=== PATIENT | female | born 1955 | race Caucasian/White ===

== ENCOUNTER 2018-09-06 16:39 | Inpatient (IN) | payer BC, OTHER ==
[~2018-09-06] VITALS: Ht 172.7 cm; Wt 68.0 kg
--- NOTE | 2018-09-06 20:15 | NUR ---
INTAKE ASSESSMENT BP:133/94, HR:117, RR:16, SpO2: 95% , T:98 Pt is in stable condition and able to be admitted on the unit. Unit protocols regarding medications and vital signs Q4H were explained. Pt verbalized understanding. Will continue admission upon arrival on the unit.
--- NOTE | 2018-09-06 20:30 | NUR ---
CIWA 15 Pt presents with anxiety, tremors, flushed skin, agitation, flat affect, restlessness, difficulty concentrating, poor eye contact, nausea, and is fidgety. PRN medication are not available at this time. Charge Nurse contacting the MD.
[2018-09-06] MEDS ORDERED: OXYB5TAB11 PO (20:47)
[2018-09-06] MEDS ORDERED: BUPR150T10 PO (20:47)
[2018-09-06] MEDS ORDERED: ESTR1PAT7 TD (20:47)
--- NOTE | 2018-09-06 21:30 | NUR ---
Admission Note Pt arrived on the unit at 2023 on 09/06/18 for medically supervised withdrawal for ETOH. Skin and body check completed, skin intact and no contraband found. Pt provided UDS. Pt is 5'8 and weighs 150 lbs. Pt presents with anxiety, flushed skin, agitation, flat affect, restlessness, difficulty concentrating, poor eye contact, and is fidgety. Pt admits to drinking 750 mls of whiskey at 1700 before boarding her plane to [place]. Pupils are PEERLA. Respirations even and unlabored, lung sounds clear. Last BM was yesterday 09/05/18. Vital signs: BP 133/94, HR 117, T 98.8, RR 20, O2 95% on room air and Pain 4/10 to the upper right quadrant. Substance Use History: Whiskey 750 mls daily, last intake 750mls today at 1700, at this rate for 3-4 months (Pt is not sure of the exact date). Pt has been abusing ETOH on and off for 40 years. Pt reports she typically gets the following S/S of withdrawal: anxiety, tremors, nausea, vomiting, body aches, sweats, and insomnia. Pt is a full code, regular diet, allergies to codeine, and is on fall/seizure precautions. No known seizure HX. Pt reports a PMH of depression, pancreatitis, hepatitis C, and lung CA diagnosed 1 year ago. Pt had the left upper lobe of her lung removed d/t her CA. Pt is a former smoker and has not smoked cigarettes for over 7 years. Pt currently takes Bupropion HCl 150 mg daily for depression and smoking cessation. Pt also is taking Estradiol 0.05 for hormone therapy for post menopause and Oxybutynin 5 mg for bladder spasms. Pt is not a candidate for MRSA, denies any hospitalization or in correction in the past 30 days. Pt reports a PCP, Dr. Davis. Pt reports grandfather being an alcoholic. Pt reports her longest period of sobriety was 9 months about 5 years ago. Pt reported last sobriety was 2 years ago and was sober for 6 month. Pt reports that she relapsed due to having a "boring life". Pt stated that she has nothing to do at home to pass the time so she drinks. Pt has also had the recent passing of a friend and an aunt this year. Pt states that her motivation for getting sober is her health and her family. Pt has an adult daughter that does not want her in her life until the Pt gets and stays sober. 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 Pt would used and shared needles for heroin. Pt contracted hepatitis C by sharing needles. Pt states this admission will be different d/t health issues and family and friends being supportive through this process. Pt reports being in 5 treatment center though the years with the most recent treatment center being [facility] in [place], [place] for 45 days in December of 2015. Pt was sober for 6 months and relapsed in June 2016. Pt does not remember the names or locations of the other 4 treatment centers at this time. Pt has 2 adult children with 4 grandchildren. 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 Oriented Pt to room and unit, educated Pt about rules and expectations of unit and how to use call light. Pt verbalized understanding. Addendum: 09/07/18 at 1436 by RONEN CARRASCO RN Update on Substance Use History: Patient's UDS resulted positive for benzodiazepines. Per patient, she had a prescription for Valium. She states that for "a few months" she took Valium 5 mg 1-2x/week for insomnia. Last use 09/03/18.
[2018-09-06] MEDS ORDERED: LOPERAMIDE HCL 2 MG CAPSULE PO PRN ×2 (22:00)
[2018-09-06] MEDS ORDERED: MAG HYDROX/AL HYDROX/SIMETH 30 ML LIQUID UDC PO PRN (22:00)
[2018-09-06] MEDS ORDERED: MAGNESIUM HYDROXIDE 30 ML LIQUID UDC PO PRN (22:00)
[2018-09-06] MEDS ORDERED: IBUPROFEN 400 MG TABLET PO PRN (22:00)
[2018-09-06] MEDS ORDERED: ONDANSETRON 4 MG/2 ML VIAL IM PRN (22:00)
[2018-09-06] MEDS ORDERED: LORAZEPAM 2 MG/1 ML VIAL IM PRN (22:00)
[2018-09-06] MEDS ORDERED: DIAZEPAM 5 MG TABLET PO PRN (22:00)
[2018-09-06] MEDS ORDERED: THIAMINE HCL 200 MG/2 ML VIAL IM ONE (22:00)
[2018-09-06] MEDS ORDERED: FOLIC ACID 1 MG TABLET PO ONE (22:15)
[2018-09-06] MEDS ORDERED: MULTIVITAMINS,THERAPEUTIC TABLET PO ONE (22:15)
[2018-09-06] MEDS: diphenhydrAMINE 50 MG CAPSULE PO PRN (22:18)
[2018-09-06] MEDS: DIAZEPAM 10 MG TABLET PO PRN (22:18)
--- NOTE | 2018-09-06 22:18 | NUR ---
PRN VALIUM 10 MG AND BENADRYL 50 MG ADMINISTRATION Pt presents with anxiety, tremors, flushed skin, agitation, flat affect, restlessness, difficulty concentrating, poor eye contact, nausea, and is fidgety. CIWA 15
[2018-09-06] MEDS ORDERED: THIAMINE HCL 100 MG TABLET PO ONE (22:30)
[2018-09-06 22:36] LABS: BASOPHILS % (AUTO) 0.4 % (0.0-2.0); EOSINOPHILS % (AUTO) 0.3 % (0.0-7.0); HEMOGLOBIN 15.6 g/dL (10.9-14.3); LYMPHOCYTES # (AUTO) 1.9 K/uL (20.0-40.0); MEAN CORPUSCULAR HEMOGLOBIN 32.7 uug (24.7-32.8); MEAN CORPUSCULAR HGB CONC 35 g/dL (32.3-35.6); MONOCYTES # (AUTO) 0.6 K/uL (2.0-10.0); MONOCYTES % (AUTO) 6.4 % (0.0-11.0); NEUTROPHILS # (AUTO) 6.4 K/uL (1.8-8.9); NEUTROPHILS % (AUTO) 71.9 % (38.5-71.5); PLATELET COUNT (AUTO) 267 K/uL (179-408); RED BLOOD CELL COUNT(AUTO) 4.78 MIL/uL (3.63-4.92); WHITE BLOOD COUNT (AUTO) 8.9 K/uL (3.8-11.8)
[2018-09-06 22:46] LABS: BILIRUBIN,TOTAL 1.4 mg/dL (0.2-1.0); CREATININE 0.8 mg/dL (0.6-1.3); MAGNESIUM 1.5 mg/dL (1.8-2.4); POTASSIUM 3.2 mmol/L (3.5-5.1); TOTAL PROTEIN, SERUM 9.4 g/dL (6.4-8.2)
[2018-09-06 22:56] LABS: THYROID STIMULATING HORMONE 5.077 mIU/mL (0.358-3.740)
[2018-09-06] MEDS ORDERED: KETOROLAC TROMETHAMINE 30 MG INJ IM ONE (23:15)
--- NOTE | 2018-09-06 23:18 | NUR ---
PRN VALIUM 10 MG AND BENADRYL 50 MG REASSESSMENT Pt continues to complain of anxiety, tremors, flushed skin, agitation, nausea, chills, and sweats. PRN medication noted not effective. Charge nurse aware.
[2018-09-06] MEDS: ONDANSETRON ODT 4 MG TAB.RAPDIS SL PRN (23:30)
--- NOTE | 2018-09-06 23:31 | NUR ---
PRN TORADOL 30MG IM AND ZOFRAN ODT 4MG ADMINISTRATION Pt complains of 8/10 pain to the URQ of her abdomen and nausea. PRN medication were administered per order. Safety measures in place. Call light within reach. Will continue to monitor.
[2018-09-06 23:39] LABS: *AMPHETAMINE, URINE NEGATIVE (NEGATIVE); *BARBITURATE, URINE NEGATIVE (NEGATIVE); *CANNABINOID, URINE NEGATIVE (NEGATIVE); *COCCAINE, URINE NEGATIVE (NEGATIVE); *OPIATE, URINE NEGATIVE (NEGATIVE); *PHENCYCLIDINE SCREEN,URINE NEGATIVE (NEGATIVE)
[2018-09-06] MEDS ORDERED: MAGNESIUM OXIDE 400 MG TABLET PO ONE (23:45)
[2018-09-06] MEDS ORDERED: POTASSIUM CHLORIDE 20 MEQ TAB.PRT.SR PO ONE (23:45)
[2018-09-07] VITALS: BP 136/106
--- NOTE | 2018-09-07 | NUR ---
CIWA 14 Pt complains of headache, anxiety, agitation, restlessness, nausea, tremors, and sweats. CIWA 14
--- NOTE | 2018-09-07 00:31 | NUR ---
PRN TORADOL 30MG IM AND ZOFRAN ODT 4MG REASSESSMENT Pt states a decrease in pain 6/10 and no more nausea. PRN mediations noted effective. Safety measures in place. Call light within reach. Will continue to monitor.
[2018-09-07] MEDS: DIAZEPAM 10 MG TABLET PO PRN ×3 (03:00→16:38)
--- NOTE | 2018-09-07 03:00 | NUR ---
PRN VALIUM 20MG ADMINISTRATION Pt complains of increased anxiety, agitation, tremors, flushed and clammy skin, body aches, headache, and restlessness. CIWA of 16 on assessment. PRN Valium 20mg was administered per order. Call light within reach. Safety measures in place. Will continue to monitor.
--- NOTE | 2018-09-07 04:00 | NUR ---
CIWA DEFERRED V/S REFUSED Pt was found in bed with eyes closed. Pt refused V/S and COWS assessment was unable to be carried out per order. Safety measures in place. Call light within reach. Will continue to monitor. Addendum: 09/07/18 at 0601 by ELLEN MEIER RN CIWA assessment was unable to be carried out per order.
--- NOTE | 2018-09-07 04:00 | NUR ---
PRN VALIUM 20MG REASSESSMENT Pt found in bed with eyes closed. Pt's respirations are even and unlabored. Medication noted as effective. Call light within reach. Safety measures in place. Will continue to monitor.
--- NOTE | 2018-09-07 06:49 | NUR ---
PRN IMODIUM Pt complains of episode of diarrhea. PRN Imodium administered as ordered. Will endorse to AM shift to monitor effectiveness.
--- NOTE | 2018-09-07 07:33 | NUR ---
END OF SHIFT Pt is a 63 y/o female admitted on 09/06/18 for ETOH withdrawal. Pt has not been has not been given a taper by the MD yet. Pt presented with anxiety, flushed skin, agitation, flat affect, restlessness, difficulty concentrating, poor eye contact, and is fidgety. PRN Benadryl, Toradol IM, Zofran ODT, Valium 10mg and Valium 20mg were administered, effective in S/S of withdrawal AEB Pt sleeping 3 hours. Last CIWA 16. Pt slept 3 hours. Intake 796 ml, void x 1, stool x 0. Safety measures in place. Call light within reach. Pt's needs have been met. Endorsed to day shift nurse.
--- NOTE | 2018-09-07 07:35 | NUR ---
START OF SHIFT Endorse rcvd from ongoing nurse, client is in room, she is in a position, sounds asleep, easy to arouse. RR 16, even, non-labored. Last CIWA 16 @ 0400. PRN Valium 20mg PO, & Valium 10mg PO, Zofran 4mg SL for nausea, Imodium 4mg PO for diarrhea. Client slept 3 hrs. Side rails x 2 up. Seizure precautions. Call light within reach. Will continue to monitor.
[2018-09-07] MEDS: ONDANSETRON ODT 4 MG TAB.RAPDIS SL PRN ×2 (08:04→16:38)
--- NOTE | 2018-09-07 08:04 | NUR ---
PRN Zofran 4mg SL for intermittent nausea, no episodes of emesis. Saltine crackers and edmundo sydnee offered to client, she decline at this time. Call light within reach.
[2018-09-07] MEDS: FOLIC ACID 1 MG TABLET PO SCH (08:05)
[2018-09-07] MEDS: MULTIVITAMINS,THERAPEUTIC TABLET PO SCH (08:05)
[2018-09-07] MEDS: THIAMINE HCL 100 MG TABLET PO SCH (08:05)
--- NOTE | 2018-09-07 08:05 | NUR ---
CIWA 24 & PRN Valium 20mg PO administered. Client is pacing the room, she presents with anxiety, irritability, tremors, avoidant gaze, flushed facial skin, restless, and difficulty concentrating. Client reports feeling very anxious, sweats, tremors, poor appetite, nausea, diarrhea, pins and needle feeling on lower extremities, abdominal pain 7/10, headache, and fatigue. Call light within reach.
[2018-09-07 08:15] VITALS: BP 157/108
--- NOTE | 2018-09-07 08:34 | NUR ---
Reassess PRN Zofran 4mg SL, client reports relief from nausea.
[2018-09-07] MEDS: OXYBUTYNIN CHLORIDE 5 MG TABLET PO SCH ×2 (08:59→16:39)
[2018-09-07] MEDS ORDERED: 4 DAY TAPER VALIUM-SERENITY PROTOCOL PO PRN (09:00)
[2018-09-07] MEDS ORDERED: PNEUMOCOCCAL 23-VAL P-SAC VAC 0.5 ML VIAL IM ONE (09:00)
[2018-09-07] MEDS ORDERED: INFLUENZA VACCINE 2018-2019 0.5 ML DISP.SYRIN IM ONE (09:00)
[2018-09-07] MEDS ORDERED: TUBERCULIN,PURIF.PROT.DERIV. 5 TU/0.1 ML TEST ID ONE (09:00)
--- NOTE | 2018-09-07 09:05 | NUR ---
Reassess PRN Valium 20mg, client reports the only difference is she does not have nausea at the moment, otherwise, she feels pretty much the same withdrawal symptoms, anxiety, irritability, tremors, flushed facial skin, restless, diarrhea, pins and needle feeling on lower extremities, abdominal pain 4/10, headache, and fatigue. Call light within reach.
[2018-09-07] MEDS: DIAZEPAM 10 MG TABLET PO SCH ×3 (09:15→20:06)
[2018-09-07 12:55] VITALS: BP 148/105
--- NOTE | 2018-09-07 12:55 | NUR ---
WA 17 Client presents with anxiety, irritability, agitation, flushed facial skin, and tremors. Client reports abdominal cramps, poor appetite, cold/chills, clammy skin, depression, headache, difficulty concentrating, fatigue, restless legs, sweating, and abdominal pain 06/23, client refuses Motrin 400mg PO at this time. Non-pharmacologic measures rendered. Encourage client to increase PO fluid intake to facilitate detox. Call light within reach.
--- NOTE | 2018-09-07 13:18 | NUR ---
Therapist prompted client to attend group therapy.
[2018-09-07 16:03] LABS: MAGNESIUM 1.9 mg/dL (1.8-2.4); POTASSIUM 4.7 mmol/L (3.5-5.1)
[2018-09-07 16:35] VITALS: BP 158/106
[2018-09-07] MEDS: KETOROLAC TROMETHAMINE 30 MG INJ IM PRN ×2 (16:38→23:04)
--- NOTE | 2018-09-07 16:38 | NUR ---
PRN Valium 10mg PO for CIWA 15, Zofran 4mg SL for nausea, Clonidine 0.1mg PO for BP 158/106, Toradol 30mg IM for abdominal pain 07/24. Client continues to reports agitation, clammy skin, body aches, sweats, difficulty thinking clearly, emotional volatility, nausea, depression, difficulty concentrating, tremors, flushed facial skin, disorientation, and poor appetite. Call light within reach.
[2018-09-07] MEDS: CLONIDINE HCL 0.1 MG TABLET PO PRN (16:39)
[2018-09-07 16:51] LABS: BILIRUBIN,TOTAL 1.5 mg/dL (0.2-1.0)
[2018-09-07 16:52] LABS: TOTAL PROTEIN, SERUM 7.5 g/dL (6.4-8.2)
--- NOTE | 2018-09-07 17:08 | NUR ---
KASSANDRA Vargas 4mg, client reports slight relief from nausea. Addendum: 09/07/18 at 1729 by JC DICK RN Reassess
--- NOTE | 2018-09-07 17:09 | NUR ---
Reassess PRN Toradol 30mg, client reports slight relief from abdominal pain 3/10, but tolerable.
--- NOTE | 2018-09-07 17:38 | NUR ---
Reassess PRN Clonidine 0.1mg PO BP 110/74, Client sound asleep, easy to arouse, RR 16. unable to reassess CIWA. Call light within reach.
--- NOTE | 2018-09-07 19:06 | NUR ---
END OF SHIFT Endorse client to incoming nurse, client is in room, a/o x 4, client continues to present with agitation, anxiety, clammy skin, sweats, cold, chills, fatigue, difficulty thinking clearly, emotional volatility, nausea, depression, difficulty concentrating, tremors, flushed facial skin, disorientation, and poor appetite. Last CIWA 15 @ 1630. Client is placed on 4 day Valium taper. PRN Valium 20mg PO for CIWA 24, Valium 10mg PO for CIWA 15, Zofran 4mg SL (x 2) for nausea, Clonidine 0.1mg PO for BP 110/74 , Toradol 30mg IM for abdominal pain. Client is not compliant with group therapy d/t above withdrawal symptoms. Consumes 25-50% of meals. Adequate PO fluid intake 1000, void x 4, stool x 3. Call light within reach.
--- NOTE | 2018-09-07 19:12 | NUR ---
Start of shift note Received report from day shift nurse. Pt is a 63 yo female, A+Ox4, presenting to [facility] for medically supervised ETOH withdrawal. Pt noted with stomach cramping, restlessness, anxiety, and agitation. Pt has HX of Hep C and pancreatitis which will be monitored during shift. Pt is on 4 day Valium taper, tolerated well. Respirations even and unlabored. Will continue to monitor.
[2018-09-07 20:11] VITALS: BP 114/87
--- NOTE | 2018-09-07 20:11 | NUR ---
CIWA Assessment CIWA: 10. Pt noted with fine tremors, sweat on brow, anxiety, and agitation. Respirations even and unlabored. Will continue to monitor.
--- NOTE | 2018-09-07 23:04 | NUR ---
PRN Toradol Pt c/o abdominal pain 06/23 and requested for PRN Toradol. Medication given and tolerated well. Will reassess within 1 HR. Will continue to monitor.
--- NOTE | 2018-09-08 00:04 | NUR ---
PRN Toradol Reassessment Medication effective. Pt expresses reduction of abdominal pain to 4/10. No s/s of ASE noted at this time. Respirations even and unlabored. Will continue to monitor.
--- NOTE | 2018-09-08 00:32 | NUR ---
V/S refused and CIWA Assessment deferred for sleep. Respirations even and unlabored. Will continue to monitor.
--- NOTE | 2018-09-08 04:47 | NUR ---
V/S refused and CIWA Assessment deferred for sleep. Respirations even and unlabored. Will continue to monitor.
--- NOTE | 2018-09-08 07:00 | NUR ---
End of shift note Pt was continuously noted with anxiety, abdominal pain, agitation, and fatigue. Pt remained in room for entire shift. Pt remained cooperative and compliant with all aspects of treatment. Pt was given PRN Toradol @2304. Pt remains on 4 day Valium taper, tolerated well. Pt slept for a total of 10 HRS. Last CIWA: 10 @2010. Respirations even and unlabored. Will endorse to day shift nurse.
[2018-09-08 07:06] LABS: HEPATITIS B SURFACE AG Negative (Negative)
[2018-09-08] MEDS: KETOROLAC TROMETHAMINE 30 MG INJ IM PRN ×3 (07:30→21:22)
--- NOTE | 2018-09-08 07:30 | NUR ---
START OF SHIFT & PRN Toradol 30mg IM administered Endorse rcvd from ongoing nurse, client is a/o x 4, she is in bed, lying on her back, covered with several blankets, she presents with anxious mood, flushed facial skin, facial grimace, irritability, gross tremors, clammy skin, startles easily, and difficulty concentrating. Client reports abdominal pain 8/10, anxiety, irritability, nausea, sweats, pins and needle feeling on BLE, headache, and fatigue. Last CIWA 10 @ 2200. PRN Toradol 30mg IM. Client slept 10 hrs. Seizure precautions. Side rails x 2 up/padded. Call light withion reach. Will continue to monitor.
--- NOTE | 2018-09-08 08:00 | NUR ---
Reassess PRN Toradol 30mg, client reports abdominal pain 6/10. Call light within reach.
[2018-09-08 08:46] VITALS: BP 135/96
[2018-09-08] MEDS: FOLIC ACID 1 MG TABLET PO SCH (08:48)
[2018-09-08] MEDS: THIAMINE HCL 100 MG TABLET PO SCH (08:48)
[2018-09-08] MEDS: MULTIVITAMINS,THERAPEUTIC TABLET PO SCH (08:48)
[2018-09-08] MEDS: DIAZEPAM 5 MG TABLET PO SCH ×4 (08:48→21:21)
--- NOTE | 2018-09-08 08:48 | NUR ---
[facility] 17 Client presents with abdominal pain, muscle aches, restlessness, nausea, clammy skin, sweats, flushed facial skin, gross tremors, anxiety, irritability, emotional volatility, depressed, anhedonia, and fatigue. Schedule Valium 5mg PO administered. Call light within reach.
[2018-09-08] MEDS: OXYBUTYNIN CHLORIDE 5 MG TABLET PO SCH ×2 (08:49→16:41)
[2018-09-08] MEDS: ESTRADIOL TOP SCH (08:49)
--- NOTE | 2018-09-08 09:46 | NUR ---
Therapist prompted client to attend group therapy.
[2018-09-08 12:48] VITALS: BP 113/60
--- NOTE | 2018-09-08 13:13 | NUR ---
WA 17 Client reports restlessness, abdominal cramping, agitation, anxiety, irritability, nausea, poor appetite, chills/colds, clammy skin, difficulty concentrating, fatigue, gross tremor, flushed facial skin, restless legs, and fatigue. Schedule Valium 5mg PO administered. Call light within reach.
--- NOTE | 2018-09-08 13:50 | NUR ---
PRN Toradol 30mg IM administered to L deltoid for abdominal pain 06/23. Call light within reach.
--- NOTE | 2018-09-08 14:20 | NUR ---
Reassess PRN Toradol 30mg, client reports a slight relief from abdominal pain 4/10, but tolerable. Call light within reach.
--- NOTE | 2018-09-08 16:41 | NUR ---
CIWA 17 Client presents with flushed facial skin, gross tremors, anxiety, irritability, and emotional volatility. Client reports feeling depressed, abdominal pain, muscle aches, restlessness, nausea, clammy skin, sweats, and fatigue. Schedule Valium 5mg PO administered. Call light within reach.
[2018-09-08 16:50] VITALS: BP 133/95
--- NOTE | 2018-09-08 19:16 | NUR ---
END OF SHIFT Endorse client to incoming nurse, client is in room, a/o x 4, client continues to present with flushed facial skin, gross tremors, anxiety, irritability, and emotional volatility, headache, depression, abdominal pain, muscle aches, restlessness, nausea, clammy skin, sweats, and fatigue. Last CIWA 17 @ 1650. Client is on second of 4 day Valium taper. PRN Toradol 30mg IM (x 2) for abdominal pain. Additional education required on cardiac diet. Client is not compliant with group therapy d/t above withdrawal symptoms. Consumes 50% of meals. Adequate PO fluid intake 1700, void x 3, stool x 1. Call light within reach.
--- NOTE | 2018-09-08 19:17 | NUR ---
Start of shift note Received report from day shift nurse. Pt is a 63 yo female, A+Ox4, presenting to [facility] for medically supervised ETOH withdrawal. Pt noted with abdominal pain, restlessness, anxiety, and agitation. Pt has HX of Hepatitis C and pancreatitis which will be monitored during shift. Pt is on 4 day Valium taper, tolerated well. Respirations even and unlabored. Will continue to monitor.
[2018-09-08 20:11] VITALS: BP 132/89
--- NOTE | 2018-09-08 20:11 | NUR ---
CIWA Assessment CIWA: 11. Pt noted with mild nausea, fine tremors, sweat on brow, anxiety, and agitation, Respirations even and unlabored. Will continue to monitor.
--- NOTE | 2018-09-08 21:22 | NUR ---
PRN Toradol Pt c/o abdominal pain 06/23 and requested for PRN Toradol. Medication given and tolerated well. Will reassess within 1 HR. Will continue to monitor.
--- NOTE | 2018-09-09 00:56 | NUR ---
V/S refused and CIWA Assessment deferred for sleep. Respirations even and unlabored. Will continue to monitor.
--- NOTE | 2018-09-09 04:42 | NUR ---
V/S refused and CIWA assessment deferred for sleep. Respirations even and unlabored. Will continue to monitor.
--- NOTE | 2018-09-09 07:00 | NUR ---
End of shift note Pt was continuously noted with abdominal pain, anxiety, restlessness, and agitation. Pt remained in room for entire shift. Pt remained compliant and cooperative with all aspects of treatment. Pt was given PRN Toradol @2121. Pt remains on 4 day Valium taper, tolerated well. Pt slept for a total of 9 HRS. Last CIWA: 11 @2010. Respirations even and unlabored. Will endorse to day shift nurse.
--- NOTE | 2018-09-09 07:15 | NUR ---
Start of Shift Pt. is a 63 y/o female admitted for the medically managed withdrawal from ETOH. Pt. was placed on a 4 day valium taper to help manage withdrawal symptoms. Endorse from previous shift pt. presented with anxiety, abdominal pain, anxiety, restlessness, and agitation. Received pt. in room. Pt. laying in bed with eyes open watching television. Pt. appears unkempt but is pleasant up approach. Educated pt. on treatment plan and medication regiment for the day. Pt. verbalize understanding. Safety measures in place. Will continue to monitor pt.s behavior for safety.
[2018-09-09 07:43] LABS: BASOPHILS % (AUTO) 0.5 % (0.0-2.0); EOSINOPHILS # (AUTO) 0.2 K/uL (0.0-0.7); EOSINOPHILS % (AUTO) 2.8 % (0.0-7.0); HEMATOCRIT 39.1 % (31.2-41.9); HEMOGLOBIN 13.9 g/dL (10.9-14.3); LYMPHOCYTES % (AUTO) 15.5 % (20.5-51.5); MEAN CORPUSCULAR HEMOGLOBIN 33.9 uug (24.7-32.8); MEAN CORPUSCULAR HGB CONC 36 g/dL (32.3-35.6); MEAN CORPUSCULAR VOLUME 95.5 fL (75.5-95.3); MONOCYTES # (AUTO) 0.4 K/uL (2.0-10.0); MONOCYTES % (AUTO) 6.1 % (0.0-11.0); NEUTROPHILS # (AUTO) 4.9 K/uL (1.8-8.9); NEUTROPHILS % (AUTO) 75.1 % (38.5-71.5); PLATELET COUNT (AUTO) 179 K/uL (179-408); WHITE BLOOD COUNT (AUTO) 6.5 K/uL (3.8-11.8)
[2018-09-09 07:54] LABS: BILIRUBIN,TOTAL 0.8 mg/dL (0.2-1.0); CREATININE 0.8 mg/dL (0.6-1.3); POTASSIUM 4.7 mmol/L (3.5-5.1); TOTAL PROTEIN, SERUM 7.5 g/dL (6.4-8.2)
[2018-09-09 08:00] VITALS: BP 128/90
--- NOTE | 2018-09-09 08:00 | NUR ---
CIWA Assessment CIWA of 12. Pt. in room presenting with anxiety, restlessness, tremors and abdominal pain. Will give medication as ordered. Will continue to monitor pt. for safety.
[2018-09-09] MEDS: OXYBUTYNIN CHLORIDE 5 MG TABLET PO SCH ×2 (08:23→16:39)
[2018-09-09] MEDS: MULTIVITAMINS,THERAPEUTIC TABLET PO SCH (08:23)
[2018-09-09] MEDS: THIAMINE HCL 100 MG TABLET PO SCH (08:23)
[2018-09-09] MEDS: FOLIC ACID 1 MG TABLET PO SCH (08:23)
[2018-09-09] MEDS: DIAZEPAM 5 MG TABLET PO SCH ×3 (08:23→21:45)
[2018-09-09] MEDS: KETOROLAC TROMETHAMINE 30 MG INJ IM PRN ×3 (08:24→21:46)
--- NOTE | 2018-09-09 08:24 | NUR ---
PRN Medication Pt. in room complaining of abdominal pain. PRN Toradol given at this time to help manage discomfort. Will continue to monitor pt.'s behavior for medication effectiveness and safety.
--- NOTE | 2018-09-09 09:30 | NUR ---
PRN Re-Assessment Pt. reports a decreased in pain and is currently rating it at a 2/10. Medication effective. Will continue to monitor pt.'s behavior for safety.
[2018-09-09 12:00] VITALS: BP 134/90
--- NOTE | 2018-09-09 12:00 | NUR ---
CIWA Assessment CIWA of 10. Pt. in room presenting with anxiety, restlessness, tremors and abdominal pain. Pt. compliant with medication regiment and treatment plan. Will continue to monitor pt. for safety.
--- NOTE | 2018-09-09 15:30 | NUR ---
PRN Re-Assessment Pt. reports a decreased in pain and is currently rating it at a 2/10. Medication effective. Will continue to monitor pt.'s behavior for safety.
[2018-09-09 16:00] VITALS: BP 135/98
--- NOTE | 2018-09-09 16:00 | NUR ---
CIWA Assessment CIWA of 9. Pt. in room presenting with anxiety, restlessness, tremors and abdominal pain. Pt. compliant with medication regiment and treatment plan. Will continue to monitor pt. for safety.
--- NOTE | 2018-09-09 19:01 | NUR ---
End of Shift Pt. is a 63 y/o female admitted for the medically managed withdrawal from ETOH. Pt. was placed on a 4 day valium taper to help manage withdrawal symptoms. Throughout shift pt. presented with anxiety, abdominal pain, anxiety, restlessness, and agitation. PRN Toradol was given X2 during shift to help manage abdominal pain. Pt. compliant with medication regiment and treatment plan. Safety measures in place. Will endorse pt.s care to oncoming shift.
--- NOTE | 2018-09-09 19:30 | NUR ---
Start of shift note Received report from day shift nurse. Patient is a 63 year old female admitted for ETOH withdrawal. Patient is on 3rd of her 4 day Valium taper. Patient was given PRN Toradol IM x 2. Last CIWA 9. Patient alert and oriented x 4. Patient presents with anxiety, restlessness and abdominal pain. Safety measures in place. Call light within reach.
[2018-09-09 20:00] VITALS: BP 154/97
--- NOTE | 2018-09-09 20:00 | NUR ---
CIWA assessment Patient reports anxiety, intermittent perspiration especially at night, bilateral hand tremors and abdominal pain. CIWA 9
[2018-09-09] MEDS: TRAZODONE 50 MG TABLET PO PRN (21:45)
--- NOTE | 2018-09-09 21:45 | NUR ---
PRN Toradol IM and Trazadone administration Patient c/o abdominal pain and requests for sleep aid. Will monitor for effectiveness
--- NOTE | 2018-09-09 22:05 | NUR ---
PRN Toradol IM re-assessment Patient states Toradol IM helpful and effective. Pain lessened
[2018-09-10] VITALS: BP 134/77
--- NOTE | 2018-09-10 | NUR ---
CIWA deferred/Trazadone re-assessment Patient lying in bed with eyes closed. Respiration even and unlabored. Will continue to monitor
[2018-09-10 04:00] VITALS: BP 139/79
--- NOTE | 2018-09-10 04:00 | NUR ---
CHAMP deferred/Trazadone re-assessment Patient lying in bed with eyes closed. Respiration even and unlabored. Will continue to monitor Addendum: 09/10/18 at 0715 by PAULIE IRVING LVN error : trazadone was re-assessed at 12 MN
--- NOTE | 2018-09-10 07:27 | NUR ---
End of shift note Patient slept 6 hours. Fluid intake 1,210 ml. Voided x 3. No BM. Patient presented with anxiety, restlessness and abdominal pain. Scheduled medication and taper given as ordered, tolerated well and no adverse reaction. Patient was given PRN Toradol IM for pain and Trazadone for sleep. Patient states medications are effective in controlling his withdrawal symptoms. Patient Safety measures in place. Call light within reach. CIWA 9.
--- NOTE | 2018-09-10 07:30 | NUR ---
START OF SHIFT Endorse rcvd from ongoing nurse, client is in baldev, a/o x 4, she presents with anxious mood, flat affect, flushed facial skin, tremors, clammy skin, and difficulty concentrating. Encourage client to attend group therapy to learn skills to maintain sober. Client reports nausea, sweats, anxiety, irritability, and emotional volatility. PRN Toradol 30mg IM for peck related to pancreatitis, Trazodone 50mg PO for insomnia, client slept 6 hrs. Client is on last of 4 day Valium taper. Last CIWA 9 @ 1999. Seizure precautions. Call light within reach.
[2018-09-10 07:46] LABS: BASOPHILS % (AUTO) 0.3 % (0.0-2.0); EOSINOPHILS # (AUTO) 0.2 K/uL (0.0-0.7); EOSINOPHILS % (AUTO) 2.8 % (0.0-7.0); HEMATOCRIT 38.3 % (31.2-41.9); HEMOGLOBIN 13.4 g/dL (10.9-14.3); LYMPHOCYTES # (AUTO) 0.8 K/uL (20.0-40.0); LYMPHOCYTES % (AUTO) 11.7 % (20.5-51.5); MEAN CORPUSCULAR HEMOGLOBIN 33.7 uug (24.7-32.8); MEAN CORPUSCULAR HGB CONC 35 g/dL (32.3-35.6); MEAN CORPUSCULAR VOLUME 96.6 fL (75.5-95.3); MONOCYTES # (AUTO) 0.4 K/uL (2.0-10.0); MONOCYTES % (AUTO) 6.4 % (0.0-11.0); NEUTROPHILS # (AUTO) 5.4 K/uL (1.8-8.9); NEUTROPHILS % (AUTO) 78.8 % (38.5-71.5); PLATELET COUNT (AUTO) 170 K/uL (179-408); RED BLOOD CELL COUNT(AUTO) 3.97 MIL/uL (3.63-4.92); WHITE BLOOD COUNT (AUTO) 6.8 K/uL (3.8-11.8)
[2018-09-10 08:01] LABS: BILIRUBIN,DIRECT 0.1 mg/dL (0.0-0.2); BILIRUBIN,TOTAL 0.5 mg/dL (0.2-1.0); CREATININE 0.8 mg/dL (0.6-1.3); POTASSIUM 4.6 mmol/L (3.5-5.1); TOTAL PROTEIN, SERUM 7.4 g/dL (6.4-8.2)
[2018-09-10 08:12] LABS: THYROID STIMULATING HORMONE 2.516 mIU/mL (0.358-3.740)
[2018-09-10 08:40] VITALS: BP 124/67
[2018-09-10] MEDS: KETOROLAC TROMETHAMINE 30 MG INJ IM PRN ×3 (08:43→23:30)
[2018-09-10] MEDS: MULTIVITAMINS,THERAPEUTIC TABLET PO SCH (08:43)
[2018-09-10] MEDS: FOLIC ACID 1 MG TABLET PO SCH (08:43)
[2018-09-10] MEDS: DIAZEPAM 5 MG TABLET PO SCH ×2 (08:43→21:38)
[2018-09-10] MEDS: THIAMINE HCL 100 MG TABLET PO SCH (08:43)
[2018-09-10] MEDS: OXYBUTYNIN CHLORIDE 5 MG TABLET PO SCH ×2 (08:43→16:54)
--- NOTE | 2018-09-10 08:43 | NUR ---
CIWA 14 & PRN Toradol 30mg IM administered for abd pain 06/23 Client presents with abdominal pain, nausea, clammy skin, sweats, flushed facial skin, gross tremors, anxiety, irritability, emotional volatility, depressed, anhedonia, and fatigue. Schedule Valium 5mg PO administered. Call light within reach.
--- NOTE | 2018-09-10 09:13 | NUR ---
Reassess PRN Toradol 30mg, client reports abdominal pain 6/10. Call light within reach.
[2018-09-10 12:00] VITALS: BP 140/90
--- NOTE | 2018-09-10 12:38 | NUR ---
Therapist prompted client to attend group therapy sessions.
[2018-09-10 16:55] VITALS: BP_SYST 133
--- NOTE | 2018-09-10 16:55 | NUR ---
CIWA 11 & PRN Toradol 30mg IM administered for abdominal pain 06/23 Client presents nausea, clammy skin, sweats, flushed facial skin, gross tremors, anxiety, irritability, emotional volatility, depressed, anhedonia, and fatigue. Call light within reach.
--- NOTE | 2018-09-10 17:25 | NUR ---
Reassess PRN Toradol 30mg, client reports abdominal pain 6/10. Call light within reach.
--- NOTE | 2018-09-10 19:24 | NUR ---
END OF SHIFT Endorse client to incoming nurse, client is in room, a/o x 4, client continues to present with flushed facial skin, gross tremors, anxiety, irritability, and emotional volatility, nausea, clammy skin, sweats, and fatigue. Last CIWA 11 @ 1700. Client is on last of 4 day Valium taper. PRN Toradol 30mg IM (x 2) for abdominal pain. Client is compliant with group therapy. Consumes 50-75% of meals. Adequate PO fluid intake 3565mL, void x 4. Call light within reach.
--- NOTE | 2018-09-10 19:30 | NUR ---
Start of shift Patient is a 63 year old female admitted on 09/06/2018. Patient is here at [facility] for medically supervised ETOH withdrawal. Patient is on a 4 day Valium taper. Patients last CIWA is 11. Patient is on Fall and Seizure precautions. Per endorsement patient had PRN Toradol during day shift. Upon rounds patient was noted in room, 2100 medications were explained to patient. Reviewed SCD education with patient and the importance to wear them, patient demonstrated understanding. Patient is breathing even and unlabored, no s/s of distress were noted. Safety measures in place, bed locked in low position, side rails up x2 and call light within reach. Will continue to monitor.
[2018-09-10 20:00] VITALS: BP 136/99
--- NOTE | 2018-09-10 20:00 | NUR ---
CIWA Assessment Patient is presenting with the following s/s of withdrawal: anxiety, agitation, sweats and tremors. Patients CIWA is 9. Safety measures in place, will continue to monitor.
[2018-09-10] MEDS: TRAZODONE 50 MG TABLET PO PRN (21:37)
--- NOTE | 2018-09-10 21:37 | NUR ---
PRN Trazodone Patient has difficulty falling asleep, administered PRN Trazodone. Patient tolerated well, will continue to monitor patient. Safety measures in place.
--- NOTE | 2018-09-10 22:37 | NUR ---
PRN Trazodone Reassessment Patient is noted in bed resting with eyes closed, no s/s of distress. Breathing is even and unlabored. Safety measures in place, will continue to monitor.
--- NOTE | 2018-09-10 23:30 | NUR ---
PRN Toradol IM Patient woke up and she said she is experiencing pain in her upper left abdominal quadrant. Patient stated her pain was 10/10. Administered Toradol IM in the left deltoid. Breathing is even and unlabored. Safety measures in place, will continue to monitor.
[2018-09-11] VITALS: BP 125/93
--- NOTE | 2018-09-11 | NUR ---
CIWA Assessment Patient is presenting with the following s/s of withdrawal: anxiety, agitation, sweats and tremors. Patients CIWA is 12. Safety measures in place, will continue to monitor.
--- NOTE | 2018-09-11 00:30 | NUR ---
PRN Toradol Reassessment Patient was observed in bed resting in bed with eyes closed, medication was noted to be successful. Breathing is even and unlabored, no s/s of distress were seen. Safety measures in place, will continue to monitor.
[2018-09-11 04:00] VITALS: BP 112/81
--- NOTE | 2018-09-11 04:00 | NUR ---
CIWA Deferred Patient was noted in bed resting with eyes closed, breathing was even and unlabored. Per protocol CIWA is to be assessed while awake. Safety measures in place. Will continue to monitor.
[2018-09-11 07:08] LABS: EOSINOPHILS # (AUTO) 0.2 K/uL (0.0-0.7); LYMPHOCYTES # (AUTO) 0.9 K/uL (20.0-40.0); LYMPHOCYTES % (AUTO) 19.9 % (20.5-51.5); MONOCYTES # (AUTO) 0.6 K/uL (2.0-10.0)
[2018-09-11 07:11] LABS: BASOPHILS % (AUTO) 0.4 % (0.0-2.0); EOSINOPHILS % (AUTO) 3.8 % (0.0-7.0); HEMATOCRIT 37.3 % (31.2-41.9); MEAN CORPUSCULAR HEMOGLOBIN 33.6 uug (24.7-32.8); MEAN CORPUSCULAR HGB CONC 35 g/dL (32.3-35.6); MEAN CORPUSCULAR VOLUME 96.3 fL (75.5-95.3); MONOCYTES % (AUTO) 11.9 % (0.0-11.0); PLATELET COUNT (AUTO) 177 K/uL (179-408); RED BLOOD CELL COUNT(AUTO) 3.88 MIL/uL (3.63-4.92)
[2018-09-11 07:13] LABS: WHITE BLOOD COUNT (AUTO) 4.7 K/uL (3.8-11.8)
--- NOTE | 2018-09-11 07:25 | NUR ---
End of shift Patient is a 63 year old female admitted on 09/06/2018. Patient is here at [facility] for medically supervised ETOH withdrawal. Patient is on a 4 day Valium taper. Patients last CIWA is 9. Patient is on Fall and Seizure precautions. Patient had PRN Trazodone and Toradol. Patient slept for 8 hours and had a total intake of 1,229ml. Patient voided x3 and no bowel movements during this shift. Patient is breathing even and unlabored. Safety measures in place, bed locked in low position, side rails up x2 and call light within reach. Will endorse to day shift.
[2018-09-11 07:27] LABS: BILIRUBIN,DIRECT 0.1 mg/dL (0.0-0.2); BILIRUBIN,TOTAL 0.6 mg/dL (0.2-1.0); CREATININE 0.9 mg/dL (0.6-1.3); POTASSIUM 4.9 mmol/L (3.5-5.1); TOTAL PROTEIN, SERUM 7.4 g/dL (6.4-8.2)
[2018-09-11 08:00] VITALS: BP 105/79
--- NOTE | 2018-09-11 08:15 | NUR ---
START OF SHIFT: Received Pt A/O X 4 laying in bed. She presents with blunted affect and depressed mood. She denies S/I and H/I. Fine tremors noted to hands. She is disheveled. She reports anxiety, night sweats and abdominal pain 5/10 on scale. CIWA 10. Valium taper in progress to manage s/s of w/d. She requests PRN Toradol IM for pain. Will administer after breakfast. Encourage a shower and group attendance today. Will continue to monitor and manage s/s of w/d.
[2018-09-11] MEDS: THIAMINE HCL 100 MG TABLET PO SCH (08:49)
[2018-09-11] MEDS: MULTIVITAMINS,THERAPEUTIC TABLET PO SCH (08:49)
[2018-09-11] MEDS: OXYBUTYNIN CHLORIDE 5 MG TABLET PO SCH ×2 (08:50→17:16)
[2018-09-11] MEDS: FOLIC ACID 1 MG TABLET PO SCH (08:50)
[2018-09-11] MEDS: KETOROLAC TROMETHAMINE 30 MG INJ IM PRN ×2 (09:26→22:48)
--- NOTE | 2018-09-11 09:30 | NUR ---
PRN Toradol IM given to manage abdominal pain 5/10 on scale. Will monitor effectiveness of medication.
[2018-09-11 10:08] LABS: TRIIODOTHYRONINE, FREE 2.7 pg/mL (2.0-4.4)
--- NOTE | 2018-09-11 10:15 | NUR ---
Pt states PRN Toradol was effective. She reports pain now 12/24. Will continue to monitor and provide support.
[2018-09-11 12:00] VITALS: BP 139/95
--- NOTE | 2018-09-11 12:09 | NUR ---
CIWA 8. Pt reports anxiety,restlessness,irritability and tremors.
--- NOTE | 2018-09-11 13:39 | NUR ---
Therapist prompted client to attend all group therapy sessions.
[2018-09-11] MEDS ORDERED: TRAZ-213 PO (15:17)
[2018-09-11 16:00] VITALS: BP 132/108
[2018-09-11] MEDS: CLONIDINE HCL 0.1 MG TABLET PO PRN (17:15)
--- NOTE | 2018-09-11 19:12 | NUR ---
END OF SHIFT: Pt continues on Valium taper to manage s/s of w/d which include anxiety,restlessness and irritability. She also reported abdominal pain and Toradol PRN IM given and effective this morning. Last CIWA 8. She attended groups and was observed interacting with peers. Will pass shift report to oncoming night nurse.
--- NOTE | 2018-09-11 19:30 | NUR ---
START OF SHIFT Pt is a 63 y/o female, admitted for ETOH W/D. Pt is A/A/O X 4, anxious about hr discharge tomorrow.Pt has completed her taper medications without any adverse reactions.Pt was given PRN Toradol IM for abdominal pain and was effective per day shift. Last CIWA 8. Pt reports anxiety,restlessness,irritability and tremors. Pt does not want to take any medications until bed time. Encouraged to verbalize needs and concerns. Emotional support provided. All safety measures are in place .Call light is within reach. Will continue to monitor for safety.
[2018-09-11 20:00] VITALS: BP 119/86
[2018-09-11] MEDS: diphenhydrAMINE 50 MG CAPSULE PO PRN (22:46)
[2018-09-11] MEDS: HYDROXYZINE PAMOATE 25 MG CAPSULE PO PRN (22:46)
--- NOTE | 2018-09-11 22:48 | NUR ---
PRN MEDS PRN Vistaril 25 mg po given for anxiety,PRN Benadryl 50 mg po given for insomnia and PRN Toradol 30 mg IM given for c/o abdominal pain.Will monitor for effectiveness.
--- NOTE | 2018-09-11 23:45 | NUR ---
PRN REASSESSMENT Pt is calm and resting in bed with eyes closed.No s/s of anxiety or pain noted,will continue to monitor.
--- NOTE | 2018-09-12 | NUR ---
CIWA DEFERRED Pt is resting in bed with eyes closed,CIWA deferred d/t Pt being asleep,v/s refused.
--- NOTE | 2018-09-12 04:00 | NUR ---
CIWA DEFERRED Pt is resting in bed with eyes closed,CIWA deferred d/t Pt being asleep,v/s refused.
--- NOTE | 2018-09-12 06:49 | NUR ---
END OF SHIFT Pt is a 63 y/o female, admitted for ETOH W/D. Pt is A/O X 4, anxious about her discharge today.Pt has completed her taper medications without any adverse reactions.Pt was given PRN Toradol IM,Vistaril and benadryl and were effective. Last CIWA 8. Pt slept 7 hours,fluid intake was 800 ml,voided x 2 .All safety measures are in place .Call light is within reach. Will continue to monitor for safety.
--- NOTE | 2018-09-12 07:30 | NUR ---
START OF SHIFT Endorse rcvd from ongoing nurse, client is a/o x 4. she presents with anxious, agitated mood, flat affect. Client stated, "I feel pretty anxious but I'm ready to continue with my treatment." Client is schedule for discharge to [facility] this am. Last CIWA 8 @ 1999. Client had an uneventful night. Client completed 4 day Valium taper. Seizure precautions. Call light within reach.
[2018-09-12] MEDS: THIAMINE HCL 100 MG TABLET PO SCH (08:31)
[2018-09-12 08:32] VITALS: BP 143/93
[2018-09-12] MEDS: HYDROXYZINE PAMOATE 25 MG CAPSULE PO PRN (08:32)
[2018-09-12] MEDS: ESTRADIOL TOP SCH (08:32)
[2018-09-12] MEDS: CLONIDINE HCL 0.1 MG TABLET PO PRN (08:32)
[2018-09-12] MEDS: OXYBUTYNIN CHLORIDE 5 MG TABLET PO SCH (08:32)
[2018-09-12] MEDS: MULTIVITAMINS,THERAPEUTIC TABLET PO SCH (08:32)
[2018-09-12] MEDS: FOLIC ACID 1 MG TABLET PO SCH (08:32)
--- NOTE | 2018-09-12 08:32 | NUR ---
PRN Clonidine 0.1mg PO for agitation, Vistaril 25mg PO for anxiety administered.
--- NOTE | 2018-09-12 09:32 | NUR ---
Reassess PRN Clonidine 0.1mg, Vistaril 25mg, client reports relief from agitation and anxiety.
--- NOTE | 2018-09-12 09:55 | NUR ---
Discharge Note Client discharged in stable condition with all valuable, belongings and home medications. Client denies SI/HI. To [facility] via private car.
== END 2018-09-12 10:02 | disposition other institution (70) | DRG 895 ==
LOC: SRC 19:48
PROVIDERS: ADMIT Family Medicine Addiction Medicine; ATTEND Family Medicine Addiction Medicine
PROC: HZ2ZZZZ Detoxification Services for Substance Abuse Treatment (ICD-10-PCS; principal; 2018-09-06)
PROC: HZ31ZZZ Individual Counseling for Substance Abuse Treatment, Behavioral (ICD-10-PCS; 2018-09-08)
PROC: HZ41ZZZ Group Counseling for Substance Abuse Treatment, Behavioral (ICD-10-PCS; 2018-09-08)
DX: F10.230 Alcohol dependence with withdrawal, uncomplicated (principal); K85.20 Alcohol induced acute pancreatitis without necrosis or infection; F33.1 Major depressive disorder, recurrent, moderate; E87.1 Hypo-osmolality and hyponatremia; Y90.1 Blood alcohol level of 20-39 mg/100 ml; Z85.118 Personal history of other malignant neoplasm of bronchus and lung; Z90.2 Acquired absence of lung [part of]; Z87.891 Personal history of nicotine dependence; F41.1 Generalized anxiety disorder; E83.42 Hypomagnesemia; E87.6 Hypokalemia; Z81.1 Family history of alcohol abuse and dependence; E86.0 Dehydration; B19.20 Unspecified viral hepatitis C without hepatic coma; D75.89 Other specified diseases of blood and blood-forming organs; D69.6 Thrombocytopenia, unspecified; R94.6 Abnormal results of thyroid function studies; F14.11 Cocaine abuse, in remission; F11.11 Opioid abuse, in remission
CPT/HCPCS: 36415; 70030-TC; 80307; 80346; 83690; 83735; 84443; 84480; 84481; 85025; 86580; 86592; 86705; 86803; 87340; 87806; 90686; 90732; A4663; G0480; J1885; J3411; Q0162; Q0163